=== PATIENT | male | born 1955 | race Caucasian/White ===

== ENCOUNTER 2021-11-19 08:54 | Outpatient (CLI) | payer MEDICARE, MEDICAID, SELFPAY ==
[2021-11-19 10:22] LABS: Albumin* 4.4 g/dL (3.3-5.0); Chloride* 105 mmol/L (96-114); Potassium* 3.9 mmol/L (3.6-5.1); Sodium* 140 mmol/L (135-149)
[2021-11-19 10:24] LABS: Cholesterol* 187 mg/dL (90-199)
[2021-11-19 10:25] LABS: Alanine Aminotransferase* 20 U/L (4-50); Alkaline Phosphatase* 100 U/L (40-150); Aspartate Amino Transferase* 30 U/L (12-35); Bilirubin Total* 0.6 mg/dL (0.1-1.5); Blood Urea Nitrogen* 12 mg/dL (7-30); Carbon Dioxide* 27 mmol/L (20-32); Creatinine* 0.9 mg/dL (0.5-1.5); Estimated Glomerular Filt Rate 95 ml/min; Glucose* 88 mg/dL (60-115); Total Protein* 7.1 g/dL (6.0-8.3); Triglycerides* 168 mg/dL (40-149)
[2021-11-19 10:26] LABS: HDL Cholesterol* 41 mg/dL (>=40); LDL Cholesterol Calculated 112 mg/dL (<100)
[2021-11-19 10:55] LABS: PSA Screen* 1.95 ng/mL (0.10-4.00)
== END 2021-11-19 08:55 | disposition home or self-care (01) ==
PROVIDERS: PCP Internal Medicine; Visit Provider Internal Medicine
DX: Z00.00 Encounter for general adult medical examination without abnormal findings (principal); E78.5 Hyperlipidemia, unspecified; Z23 Encounter for immunization; Z12.5 Encounter for screening for malignant neoplasm of prostate
CPT/HCPCS: 80053; 80061; 84153

== ENCOUNTER 2022-04-18 11:41 | Emergency (ER) | payer MEDICARE, MEDICAID, SELFPAY ==
[2022-04-18 12:04] VITALS: BP 132/87; PULSE 90; TEMP 36.2; O2SAT 96; BMI 26.5
--- NOTE | 2022-04-18 12:20 | ED.GENADULT ---
HPI - General Adult General Chief complaint: Unspecified Complaint, Adult Stated complaint: +Covid Time Seen by Provider: 04/18/22 11:58 History of Present Illness HPI narrative: This 66-year-old male comes in with his as both are positive for COVID. He states that he does not have much for symptoms but is interested in getting Paxlovid. This was prescribed for his . He is interested in getting a prescription for Paxil of it for himself. Related Data Previous Rx's Medication Instructions Recorded gzivkrhw-yfdsmz-NT-thonzonm 3.3 4 drp otic (ear) TID Ear Wax #10 mL 11/19/21 mg-3 mg-10 mg-0.5 mg/mL ear drops,susp (Cortisporin-TC) oijfhrrd-acdati-EJ-thonzonm 3.3 4 drp otic (ear) TID Ear Wax #10 mL 11/22/21 mg-3 mg-10 mg-0.5 mg/mL ear drops,susp (Cortisporin-TC) nwwsubiz-vuctze-NH-thonzonm 3.3 4 drp otic (ear) TID #10 mL 01/01/22 mg-3 mg-10 mg-0.5 mg/mL ear drops,susp (Cortisporin-TC) nirmatrelvir 300 mg (150 mg See Rx Instructions PO .COMPLEX 04/18/22 x2)-ritonavir 100 mg tablet,dose #30 ea pack(EUA) (Paxlovid) Allergies Allergy/AdvReac Type Severity Reaction Status Date / Time No Known Allergies Allergy Unknown Unverified 11/19/21 08:22 Review of Systems Status of ROS: Reports: 10 or more systems reviewed and unremarkable except as noted in History and below Narrative: Constitutional: No fevers, no weight gain or loss. Eyes: No discharge. No vision changes. HENT: No congestion, no sore throat, no ear pain. Cardiovascular: No chest pain, no palpitations. Respiratory: No shortness of breath, no wheezes, no cough. Gastrointestinal: No abdominal pain, no vomiting, no diarrhea. Genitourinary: No dysuria, no hematuria. Musculoskeletal: Normal range of motion. Skin: No rashes, no pruritis. Neurological: No dizziness, weakness, sensory change, speech change. Endo/Heme/Allergies: No bruising or bleeding. No polydipsia. Pysch: no suicidality, no anxiety, no insomnia. All other systems reviewed and are negative. [facility] Medical History (Updated 04/18/22 @ 12:24 by Christopher Butcher MD) Excess ear wax Healthcare maintenance Tubular adenoma Social History Smoking Status: Never smoker Exam Narrative: Exam Narrative: Constitutional: Well-developed, well-nourished, no acute distress. HEENT: Normocephalic, atraumatic. Neck: Normal range of motion. Nontender. Supple. Heart: Regular. No murmurs. Normal rate. Intact distal pulses. Lungs: Clear to auscultation. No chest discomfort. No wheezes, rhonchi, or rales. Abdomen: Normal bowel sounds. Nontender. No rebound tenderness. Genitalia: Deferred. Back: No midline tenderness. Normal range of motion. Extremities: Normal range of motion. No injury. Skin: Intact. No rash. Warm. No erythema or pallor. Neurologic: No altered sensation. No weakness. Alert and oriented. Psychiatric: No suicidality. No anxiety or depression. No insomnia. Nursing notes and vitals signs are reviewed. Const: Vital Signs, click to edit/add: Vital Signs - 24 hr 04/18/22 12:04 Temperature 97.2 F L Pulse Rate [Pulse Oximeter] 90 Blood Pressure [Ri ght Upper Arm] 132/87 Pulse Oximetry 96 Oxygen Delivery Me thod Room Air Course Vital Signs Vital signs: Initial Vital Signs Temperature 97.2 F L 04/18/22 12:04 Temperature Source Temporal Artery Scan 04/18/22 12:04 Pulse Rate 90 04/18/22 12:04 Blood Pressure 132/87 04/18/22 12:04 Blood Pressure Mean 102 04/18/22 12:04 Blood Pressure Position Sitting 04/18/22 12:04 Pulse Oximetry 96 04/18/22 12:04 Oxygen Delivery Method 04/18/22 12:04 Vital Signs Temperature 97.2 F L 04/18/22 12:04 Pulse Rate 90 04/18/22 12:04 Blood Pressure 132/87 04/18/22 12:04 Pulse Oximetry 96 04/18/22 12:04 Oxygen Delivery Method 04/18/22 12:04 Temperature 97.2 F L 04/18/22 12:04 Pulse Rate 90 04/18/22 12:04 Blood Pressure 132/87 04/18/22 12:04 Pulse Oximetry 96 04/18/22 12:04 Oxygen Delivery Method 04/18/22 12:04 Medical Decision Making MDM Narrative Medical decision making narrative: This patient comes in primarily because of his but he himself is interested in getting a prescription for Paxlovid. They both tested positive for COVID prior to arrival here. He has normal vital signs and states that he really is not really having any symptoms. I did provide a prescription for Paxlovid. At the time of discharge the patient appears safe for outpatient management. The treatment plan is reviewed along with written and verbal return precautions. Reasons to return and the importance of close followup were also reviewed. Discharge Plan Discharge Clinical Impression: COVID-19 Patient Disposition: Home, Self-Care Condition: Stable Additional Instructions: Take medication as prescribed. Follow up with MD. Return if worsening symptoms occur, in particular if becoming short of breath and hypoxic. Prescriptions: New Paxlovid (EUA) 300 mg (150 mg x 2)-100 mg tablets,dose pack See Rx Instructions .ROUTE .COMPLEX Qty: 30 0RF Rx Instructions: take TWO 150 mg tablets of nirmatrelvir with ONE 100 mg tablet of ritonavir twice daily for 5 days No Action Cortisporin-TC 3.3-3-10-0.5 mg/mL drops,suspension 4 drp otic (ear) TID Qty: 10 2RF Rx Instructions: Generic ok Cortisporin-TC 3.3-3-10-0.5 mg/mL drops,suspension 4 drp otic (ear) TID Qty: 10 3RF Cortisporin-TC 3.3-3-10-0.5 mg/mL drops,suspension 4 drp otic (ear) TID Qty: 10 0RF Follow Up/Referrals: Charles Holt MD [Primary Care Provider] - Stand Alone [facility]
[2022-04-18 13:03] VITALS: BP 121/84; PULSE 68; RESP 14; O2SAT 96
== END 2022-04-18 13:41 | disposition home or self-care (01) ==
LOC: ED 12:28
PROVIDERS: Emergency Provider Emergency Medicine Emergency Medical Services; PCP Internal Medicine
DX: U07.1 COVID-19 (principal)
CPT/HCPCS: 99283; 99284

== ENCOUNTER 2022-12-08 10:46 | Outpatient (CLI) | payer MEDICARE, MEDICAID, SELFPAY | END 2022-12-08 10:47 | disposition home or self-care (01) | PROVIDERS: PCP Internal Medicine; Visit Provider Internal Medicine | DX: Z00.00 Encounter for general adult medical examination without abnormal findings (principal); R53.83 Other fatigue; Z12.5 Encounter for screening for malignant neoplasm of prostate; Z13.6 Encounter for screening for cardiovascular disorders | CPT/HCPCS: 80053; 80061; 84153 ==

== ENCOUNTER 2023-12-22 08:15 | Outpatient (CLI) | payer MEDICARE, OTHER, SELFPAY | END 2023-12-22 08:16 | disposition home or self-care (01) | LOC: NFLDREF 14:19 | PROVIDERS: PCP Internal Medicine; Referring Provider Internal Medicine; Visit Provider Internal Medicine | DX: Z00.00 Encounter for general adult medical examination without abnormal findings (principal); Z12.5 Encounter for screening for malignant neoplasm of prostate; Z13.6 Encounter for screening for cardiovascular disorders; Z13.9 Encounter for screening, unspecified | CPT/HCPCS: 80053; 80061; G0103 ==

== ENCOUNTER 2024-02-08 14:34 | Outpatient (CLI) | payer MEDICARE, OTHER, SELFPAY ==
--- OUTSIDE RECORDS SUMMARY | 2024-02-08 14:37 | XMS_ITS | Encounter Summary ---
Author Organization [facility] Address [address] [place] [address] Care Team Providers Care Beam Department Supervisor Name Role Phone Unavailable Primary Care Provider Unavailabl e Reason for Referral * Outpatient (Routine) - Closed Specialty Diagnoses / Procedures Referred By Jackie t Referred To Contact Ophthalmology Diagnoses Cataract Charles Holt M.D. [address] [place] [address] Phone: tel: fax: [facility] Referral ID Status Reason Start Date Expiration Date Visits Re quested Visits Authorized [id number] Closed 12/14/2023 06/14/2025 1 1 Encounter Details Date Type Department Care Team (Late st Contact Info) Description 12/14/2023 [facility] [address] [place] [address] Charles Holt M.D. [address] [place] [phone] Cataract (Primary Dx) Social History Tobacco Use Types Packs/Day Years Used Date Smoking Tobacco: Never Assessed Dental Answer Date Recorded Dental: Regular Dentist Unknown 12/03/19 Sex and Gender Information Value Date Recorded Sex Assigned at Not on file Legal Sex Male 3:15 PM CDT Gender Identity Not on file Sexual Orientation Not on file documented as of this encounter Plan of Treatment Scheduled Referrals Name Type Priority Associated Diagnoses Orde r Schedule Optometry Referral Outpatient Referral Routine Cataract Expected: 12/14/2023 (Approximate), Expires: 03/14/2025 documented as of this encounter Visit Diagnoses Diagnosis Cataract- Primary documented in this encounter
--- OUTSIDE RECORDS SUMMARY | 2024-02-08 14:37 | XMS_ITS | Referral Summary ---
Author Organization [facility] Address [address] [place] [address] Care Team Providers Care Economic Analyst Name Role Phone Unavailable Primary Care Provider Unavailabl e Source Comments Patient records contain information from all sites at [facility]. For routine questions regarding patient records, call [phone] during business hours, M-F 8:00 AM - 5:00 PM Central Time. Record requests for emergency care only can be directed to [phone] at any time.[facility] Encounters Date Type Department Care Team Description 12/22/2023 Episode Changes Department of Ophthalmology in [place], [place] [address] [place] [address] Cris Barkley 12/22/2023 3:15 PM CDT Comprehensive Visit Department of Ophthalmology in [place], [place] [address] [place] [phone] Ramos Boston M.D. Age Related Nuclear Cataract Bilateral (Primary Dx); Cataract 12/15/2023 Orders Only Department of Ophthalmology in [place], [place] [address] [place] [address] Shahid Sebastian, C.OLala Age Related Nuclear Cataract Bilateral (Primary Dx) 12/15/2023 Clinical Communication Department of Ophthalmology in [place], [place] [address] [place] [address] Ramos Boston M.D. 12/14/2023 [facility] [address] [place] [address] Charles Holt M.D. Cataract (Primary Dx) from Last 3 Months Social History Tobacco Use Types Packs/Day Years Used Date Smoking Tobacco: Never Assessed Dental Answer Date Recorded Dental: Regular Dentist Unknown 12/03/19 24 Sex and Gender Information Value Date Recorded Sex Assigned at Not on file Legal Sex Male 3:15 PM CDT Gender Identity Not on file Sexual Orientation Not on file Plan of Treatment Not on file Insurance MEDICARE [facility]
--- OUTSIDE RECORDS SUMMARY | 2024-02-08 14:37 | XMS_ITS | Encounter Summary ---
Author Organization [facility] Address [address] [place] [address] Care Team Providers Care Slubber Hand Name Role Phone Unavailable Primary Care Provider Unavailabl e Reason for Visit * Reason Comments Cataract * Outpatient (Routine) - Closed Specialty Diagnoses / Procedures Referred By Jackie lynne Referred To Contact Ophthalmology Diagnoses Cataract Charles Holt M.D. [address] [place] [address] Phone: tel: fax: [facility] Referral ID Status Reason Start Date Expiration Date Visits Re quested Visits Authorized [id number] Closed 12/14/2023 06/14/2025 1 1 Encounter Details Date Type Department Care Team (Latest Contact Info) Description 12/22/2023 3:15 PM CDT Comprehensive Visit Department of Ophthalmology in [place], [place] [address] [place] [address] Ramos Boston M.D. 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 RBA bilateral cataract surgery discussed. Note would target plano with second eye committed ot surgery one month later. Would lose ability to see near without glasses rx. Will call if/when functionally significant and wishes to pursue cataract surgery. #2 high myopia Does not wear contacts. Note increased risk retinal tear, detachment. Eyeglass rx updated. #3 floaters No retinal detachment, hole, or tear. Follow-up as needed for new symptoms. 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
--- OUTSIDE RECORDS SUMMARY | 2024-02-08 14:37 | XMS_ITS | Encounter Summary ---
Author Organization [facility] Address [address] [address] Phone Care Team Providers Care Boot And Saddle Repair Person Name Role Phone Gaston Aguirre MD Primary Care Provider [phone] Reason for Visit * Reason Comments Ear Problem Encounter Details Date Type Department Care Team (Late st Contact Info) Description 01/07/2024 2:15 PM CDT Office Visit [facility] OTOLARYNGOLOGY [address] [place] [phone] Ramos Son MD,PhD [address] [place] [address] Chronic otitis externa of both ears, unspecified type (Primary Dx); Sensorineural hearing loss (SNHL) of both ears Social History Tobacco Use Types Packs/Day Years Used Date Smoking Tobacco: Never Smokeless Tobacco: Never Sex and Gender Information Value Date Recorded Sex Assigned at Not on file Legal Sex Male 3:45 PM CDT Gender Identity Not on file Sexual Orientation Not on file documented as of this encounter Progress Notes * Ramos Son MD,PhD - 01/07/2024 2:15 PM CDT [facility]- Established Patient HPI: Kin Ac is a(n) 68 year old who presents for an ear cleaning. He was last seen 11/06/21 for chronic otitis externa of both ears. Location: bilateral ears Current symptoms: plugged ears, itchiness Current treatment: None Previous symptoms: plugged ears, slight hearing loss, drainage in the right ear Past treatment: PCP tried ear lavage of both ears 3-4 weeks ago, Last ear cleaning 11/06/21 Previous tests: None Physical Exam: General: Pleasant male sitting in clinic in no acute distress Head and Face: Normal Facial strength: Normal Ears: see procedure note Neck: Normal Lungs: Normal respiratory effort, rate and rhythm, no increased work of breathing Neuro/Psych: Normal- orientation to person, place and time Mood and affect: Normal Gait and station: Normal Procedure: Binocular Microscopy Indication: plugged ears Description: Right: Under the binocular microscope, the right ear was visualized and ear was cleansed of wet cerumen. No drainage. No granulation tissue. No lesions. Ear canal irritated and inflamed. TM is intact, middle ear clear. Left Under the binocular microscope, the left ear was visualized and ear was cleansed of wet cerumen. Nodrainage. No granulation tissue. No lesions. Ear canal irritated and inflamed. TM is intact, middleear clear. Instruments used: suction. Medications used: none. Impression/Plan: (H60.63) Chronic otitis externa of both ears, unspecified type (primary encounter diagnosis); Sensorineural hearing loss Under the binocular microscope, wet cerumen cleansed from both ears (L>R) to reveal a inflamed and irritated ear canal (see procedure note). We discussed routine ear cleanings and/or Triamcinolone0.1% in his ears. He opts for routine cleanings every 6 months. I personally reviewed and interpreted the audiogram, which shows moderately severe SNHL of both ears. He is a candidate for hearing aids and will schedule a hearing aid evaluation. Follow up in 6 months, sooner as needed. Scribed for Ramos Son MD,PhD by Aline Mcpherson RN, scribe, on 01/07/2024 at 2:06 PM. I, Ramos Son MD,PhD, have personally reviewed and agreed with the information entered bythe scribe. documented in this encounter Plan of Treatment Not on file documented as of this encounter Procedures Procedure Name Priority Date/Time Associated Diagnosis Comments EAR MICROSCOPY EXAMINATION Routine 01/07/2024 3:32 PM CDT Chronic otitis externa of both ears, unspecified type documented in this encounter Visit Diagnoses Diagnosis Chronic otitis externa of both ears, unspecified type- Primary Sensorineural hearing loss (SNHL) of both ears documented in this encounter Orders Procedures Count Last Ordered Date First Orde red Date EAR MICROSCOPY EXAMINATION 1 01/07/2024 documented in this encounter Care Teams Boot And Saddle Repair Person Relationship Specialty Start Date End Date Gaston Aguirre MD [address] [address] PCP - General Family Medicine 01/07/24 documented as of this encounter
--- OUTSIDE RECORDS SUMMARY | 2024-02-08 14:37 | XMS_ITS | Encounter Summary ---
Author Organization [facility] Address [address] [address] Phone Care Team Providers Care Automobile Or Truck Rental Dispatcher Name Role Phone Gaston Aguirre MD Primary Care Provider [phone] Encounter Details Date Type Department Care Team (Late st Contact Info) Description 01/07/2024 2:30 PM CDT Office Visit [facility] AUDIOLOGY [address] [place] [address] [address] [place] [phone] NoraMireya MS [address] [place] [address] Chronic otitis externa of both ears, unspecified type (Primary Dx) Social History Tobacco Use Types Packs/Day Years Used Date Smoking Tobacco: Never Smokeless Tobacco: Never Sex and Gender Information Value Date Recorded Sex Assigned at Not on file Legal Sex Male 3:45 PM CDT Gender Identity Not on file Sexual Orientation Not on file documented as of this encounter Progress Notes * Nora, Mireya Bahena MS - 01/07/2024 2:30 PM CDT [facility] Visit - Hearing Test Malorie Ac is a 68 year old patient who presents with chronic otitis externa of both ears. . OTOSCOPY: Right: Clear Left: Clear TEST RESULTS: Pure tone hearing testing: Mild to moderately severe, mid to high frequency, sensorineural hearing loss in each ear. Speech audiometry: Right: 80% Left: 84% NOTE: Pt is not a [place] speaker. Speech Media Associate Thresholds (SRT) were consistent with Pure Tone Averages (FUNERAL DRIVER). Tympanometry: Right: Type A tympanogram -- consistent with normal middle ear function Left: Type A tympanogram -- consistent with normal middle ear function FOLLOW UP: Returned to exam room for ENT consult. Hearing aid evaluation is recommended. documented in this encounter Plan of Treatment Not on file documented as of this encounter Procedures Procedure Name Priority Date/Time Associated Diagnosis Comments TYMPANOMETRY Routine 01/07/2024 Chronic otitis externa of both ears, unspecified type COMPREHENSIVE HEARING TEST Routine 01/07/2024 Chronic otitis externa of both ears, unspecified type documented in this encounter Results * TYMPANOMETRY (01/07/2024) us Mireya Melendez MS EC PROCEDURES Final Result * COMPREHENSIVE HEARING TEST (01/07/2024) us Mireya Melendez MS EC PROCEDURES Final Result documented in this encounter Visit Diagnoses Diagnosis Chronic otitis externa of both ears, unspecified type- Primary documented in this encounter Care Teams Automobile Or Truck Rental Dispatcher Relationship Specialty Start Date End Date Gaston Aguirre MD [address] [address] PCP - General Family Medicine 01/07/24 documented as of this encounter
--- OUTSIDE RECORDS SUMMARY | 2024-02-08 14:37 | XMS_ITS | Encounter Summary ---
Author Organization [facility] Address [address] [place] [address] Care Team Providers Care Research Development Manager Name Role Phone Unavailable Primary Care Provider Unavailabl e Encounter Details Date Type Department Care Team (Late st Contact Info) Description 12/22/2023 Episode Changes Department of Ophthalmology in [place], [place] [address] [place] [address] Cris Barkley Social History Tobacco Use Types Packs/Day Years Used Date Smoking Tobacco: Never Assessed Dental Answer Date Recorded Dental: Regular Dentist Unknown 12/03/19 Sex and Gender Information Value Date Recorded Sex Assigned at Not on file Legal Sex Male 3:15 PM CDT Gender Identity Not on file Sexual Orientation Not on file documented as of this encounter Plan of Treatment Not on file documented as of this encounter Visit Diagnoses Not on filedocumented in this encounter
--- OUTSIDE RECORDS SUMMARY | 2024-02-08 14:37 | XMS_ITS ---
Author Organization [facility] Address [address] [place] [address] Care Team Providers Care Director Of Annual Giving Name Role Phone Unavailable Unavailable Unavailable Surgery Details Not on file Complications Check Surgery Details section. Procedure Estimated Blood Loss Check Surgery Details section. Procedure Findings Check Surgery Details section. Procedure Specimens Taken Check Surgery Details section.
--- OUTSIDE RECORDS SUMMARY | 2024-02-08 14:37 | XMS_ITS | Encounter Summary ---
Author Organization [facility] Address [address] [place] [address] Care Team Providers Care Pecan Huller Name Role Phone Unavailable Primary Care Provider Unavailabl e Encounter Details Date Type Department Care Team (Latest Contact Info) Description 12/15/2023 Clinical Communication Department of Ophthalmology in [place], [place] [address] [place] [address] Ramos Boston M.D. [address] [place] [address] Social History Tobacco Use Types Packs/Day Years [...]
--- OUTSIDE RECORDS SUMMARY | 2024-02-08 14:37 | XMS_ITS | Clinical Summary ---
Author Organization [facility] Address [address] [place] [address] Care Team Providers Care Merchandise Manager Name Role Phone Unavailable Primary Care Provider Unavailabl e Source Comments Patient records contain information from all sites at [facility]. For routine questions regarding patient records, call [phone] during business hours, M-F 8:00 AM - 5:00 PM Central Time. Record requests for emergency care only can be directed to [phone] at any time.[facility] Encounters Date Type Department Care Team Description 12/22/2023 3:15 PM CDT Comprehensive Visit Department of Ophthalmology in [place], [place] [address] [place] [address] Ramos Boston M.D. 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 12/14/2023 [facility] [address] [place] [address] Charles Holt M.D. Cataract (Primary Dx) from [...] Orientation Not on file Plan of Treatment Health Maintenance Due Date Last Done Comments CT Colonography 1955 Cologuard 1955 Colonoscopy 1955 Colorectal Cancer Screening 1956 FIT 1956 Fasting Glucose for Diabetes Screening 1955 Hepatitis C Screening 1955 Pneumococcal vaccine (65+ years) (2 of 2 - PPSV23 or PCV20) 11/19/2022 11/19/2021 Depression Screening (Annual PHQ-2) 03/22/2023 Fall Risk Screen (Annual) 03/22/2023 COVID-19 Vaccine ( season) 2023 12/30/2021, 07/15/2021, 12/21/2020, Additional history exists Influenza Vaccine (#1) 2023 3, 12/30/2021, 12/21/2020, Additional history exists DTaP,Tdap,and Td Vaccines (2 - Td or Tdap) 09/08/2027 09/07/2017 Zoster Vaccines Completed 01/26/2018, 10/25/2017 IPV Vaccines Aged Out No longer eligi ble based on patient's age to complete this topic Insurance MEDICARE [employer]
--- OUTSIDE RECORDS SUMMARY | 2024-02-08 14:37 | XMS_ITS | Clinical Summary ---
Author Organization [facility] Address [place], [place] [address] Care Team Providers Care Real Estate Leasing Agent Name Role Phone Unknown, Doctor Primary Care Provider Unavailabl e Allergies No known active allergies Medications Medication Sig Dispensed Refills Start Date End Date Status predniSONE (DELTASONE) 20 mg tabletIndications: Lumbar radiculopathy Take 1 Tablet (20 mg) by mouth two times daily with meals for 4 days, THEN 1 Tablet (20 mg) once daily with a meal for 4 days. 12 Tablet 02/05/2024 4 Active HYDROcodone-acetam inophen (5-325 mg/tablet)Indicati ons:Lumbar radiculopathy Take 1 Tablet by mouth every 4 hours if needed for Pain. Max acetaminophen dose: 4000 mg in 24 hrs. 24 Tablet 02/07/2024 Active HYDROcodone-acetam inophen (5-325 mg/tablet)Indicati ons:Lumbar radiculopathy Take 1 Tablet by mouth every 4 hours if needed for Pain. Max acetaminophen dose: 4000 mg in 24 hrs. 12 Tablet 02/05/2024 4 Discontinu ed(Reorder (E-cancel not sent)) Active Problems No known active problems Encounters Date Type Department Care Team Description 02/08/2024 11:15 AM PRESS OPERATOR HELPER Ancillary Procedure [facility] [address] [facility] [address] [place] [address] Arrived 02/08/2024 Telephone [facility] [address] [place] [address] Gabino Chen MD Results 02/07/2024 4:00 PM PRESS OPERATOR HELPER Ancillary Procedure [facility] [address] [place] [address] Arrived 02/07/2024 3:45 PM PRESS OPERATOR HELPER Ancillary Procedure [facility] [address] [place] [address] Arrived 02/07/2024 2:40 PM PRESS OPERATOR HELPER Office Visit [facility] [address] [place] [address] Gabino Chen MD Musculoskeletal Problem (Consult back pain/Consult left knee pain) 02/07/2024 Travel 02/05/2024 Orders Only [facility] [address] [place] [address] Gabino Chen MD Back Pain (/) from Last 3 Months Immunizations Name Administration Dates Next Due Influenza, IIV3 (Age >=3 years) 04/11/2007 Social History Tobacco Use Types Packs/Day Years Used Date Smoking Tobacco: Never Smokeless Tobacco: Never Tobacco Cessation:Counseling Given: Yes Sex and Gender Information Value Date Recorded Sex Assigned at Not on file Gender Identity Not on file Sexual Orientation Not on file Obstetrics History Last Filed Vital Signs Vital Sign Reading Time Taken Comments Blood Pressure 152/84 02/07/2024 2:56 PM PRESS OPERATOR HELPER Pulse 63 02/07/2024 2:56 PM PRESS OPERATOR HELPER Temperature 36.6 C (97.9 F) 02/07/2024 2:56 PM PRESS OPERATOR HELPER Respiratory Rate - - Oxygen Saturation 95% 02/07/2024 2:56 PM PRESS OPERATOR HELPER Inhaled Oxygen Concentration - - Weight 84.4 kg (186 lb) 02/07/2024 2:56 PM PRESS OPERATOR HELPER s hoes on Height - - Body Mass Index - - Plan of Treatment Upcoming Encounters Date Type Department Care Team (Late st Contact Info) Description 02/08/2024 3:20 PM PRESS OPERATOR HELPER Office Visit [facility] [address] [place] [address] Gabino Chen MD [address] [place] [address] Arrived Health Maintenance Due Date Last Done Comments Tdap 06/16/1967 Depression screening for age 12+ 1968 BMI (ht and wt on same day) for age 18+ 1974 Hepatitis C screening for ag e 18-79 1974 Tetanus booster 1976 Zoster (shingles) series for age 50+ (1 of 2) 2006 Medicare Wellness for age 65+ 2021 Pneumococcal series for age 65+ (1 of 1 - PCV) 2021 Fecal testing non-DNA (FIT,FOBT,iFOBT) for age 45-75 10/10/2021 10/10/2020 Influenza for age 65+ 11/21/2023 04/11/2007 Lipids for age 45-75 09/18/2025 09/18/2020 COVID-19 vaccine series Completed 01/05/20, 12/21/2020, 06/14/2020, Additional history exists Procedures Procedure Name Priority Date/Time Associated Diagnosis Comments AMB EPIDURAL STEROID INJECTION MARIA ISABEL 02/08/2024 12:32 PM PRESS OPERATOR HELPER Lumbar radiculopathy Lumbar disc herniation Left leg weakness MR SPINE LUMBAR WO MARIA ISABEL 02/08/2024 11 :51 AM PRESS OPERATOR HELPER Lumbar radiculopathy Left leg weakness Acute pain of left knee XR SPINE LUMBAR 2 VIEWS Routine 02/07/2024 4:05 PM PRESS OPERATOR HELPER Lumbar radiculopathy XR KNEE WB 2 VIEWS BILATERAL AND 1 VIEW LEFT Routine 02/07/2024 4:04 PM PRESS OPERATOR HELPER Left leg weakness Acute pain of left knee OCCULT BLOOD IFOBT STOOL Routine 10/10/2020 2:00 PM CDT LIPID PANEL Routine 09/18/2020 9:08 AM CDT from Last 3 Months or Most Recently Relevant to Health Maintenance Results * MR SPINE LUMBAR WO (02/08/2024 11:51 AM PRESS OPERATOR HELPER) Anatomical Region Laterality Modality Spine, LUMBAR SPINE Magnetic Res onance 02/08/2024 12:0 5 PM PRESS OPERATOR HELPER Addenda Addendum by David Hendrix MD, PhD on 02/08/2024 12:23 PM PRESS OPERATOR HELPER INDICATION: Lumbar radiculopathy. Left leg weakness. COMPARISON: None. TECHNIQUE: Sagittal T1, T2, and STIR sequences. Axial T1 and T2 weighted sequences. FINDINGS: Normal vertebral body alignment. No fractures. No vertebral body loss of height. No ligamentous injury. No suspicious osseous lesions. Normal conus terminates at L2. T11-12: Disc degeneration and posterior disc bulge. Mild narrowing of spinal canal. No neural foraminal narrowing. T12-L1: No spinal canal or neural foraminal narrowing. L1-2: Disc degeneration. No narrowing of spinal canal. No neural foraminal narrowing. L2-3: Disc degeneration and posterior disc bulge. No narrowing of spinal canal. No neural foraminal narrowing. L3-4: Disc degeneration and diffuse disc bulge eccentric to the right. Mild narrowing of spinal canal. Moderate severe right and mild left neural foraminal narrowing. Mild facet arthropathy. L4-5: Disc degeneration. Diffuse disc bulge. Moderate narrowing of the spinal canal. Bilateral subarticular recess narrowing potential impingement of the traversing L5 nerve roots. Moderate narrowing of the bilateral foramina. Mild facet arthropathy. L5-S1: Disc degeneration diffuse disc bulge eccentric to the left. No narrowing of spinal canal. No impingement of the traversing S1 nerve roots. Mild right and moderate left neural foraminal narrowing. Mild facet arthropathy. Degenerative changes of the SI joints. Normal paraspinal soft tissues. IMPRESSION: 1. Normal alignment. No fractures 2. Lumbar spondylosis 3. At T11-12, mild narrowing of the spinal canal 4. At L3-4, mild narrowing of the spinal canal. Moderate to severe right and mild left neural foraminal narrowing. 5. At L4-5, moderate narrowing of the spinal canal. Potential impingement of the traversing L5 nerve roots. Moderate narrowing of the bilateral neural foramina 6. At L5-S1, moderate narrowing of the left neural foramen Dictated by David Hendrix MD @ 02/08/2024 12:05:34 PM ----- ADDENDUM ----- Addendum : Additional findings: At L4-5, disc degeneration and posterior disc bulge. There is an additional superimposed left subarticular disc extrusion measuring approximately 7 millimeters in diameter with 17 millimeters of cephalad migration (best appreciated on series 10 image 28; series 5, image 11). This results in impingement of the traversing portion of the left L4 nerve root. Otherwise, as noted in debridement dictation, there is moderate narrowing of the spinal canal. Bilateral subarticular recess narrowing with potential impingement of the traversing L5 nerve roots. Moderate narrowing of the bilateral neural foramina. Findings discussed with Dr. Chen at 12:21 p.m. Dictated by David Hendrix MD @ Feb 08 2024 12:21PM (Electronically Signed) Impressions 02/08/2024 12:05 PM PRESS OPERATOR HELPER 1. Normal alignment. No fractures 2. Lumbar spondylosis 3. At T11-12, mild narrowing of the spinal canal 4. At L3-4, mild narrowing of the spinal canal. Moderate to severe right and mild left neural foraminal narrowing. 5. At L4-5, moderate narrowing of the spinal canal. Potential impingement of the traversing L5 nerve roots. Moderate narrowing of the bilateral neural foramina 6. At L5-S1, moderate narrowing of the left neural foramen Dictated by David Hendrix MD @ 02/08/2024 12:05:34 PM (Electronically Signed) Narrative 02/08/2024 12:05 PM PRESS OPERATOR HELPER For Patients: As a result of the Cures Act, medical imaging exams and procedure reports are released immediately into your electronic medical record. You may view this report before your referring provider. If you have questions, please contact your health care provider. INDICATION: Lumbar radiculopathy. Left leg weakness. COMPARISON: None. TECHNIQUE: Sagittal T1, T2, and STIR sequences. Axial T1 and T2 weighted sequences. FINDINGS: Normal vertebral body alignment. No fractures. No vertebral body loss of height. No ligamentous injury. No suspicious osseous lesions. Normal conus terminates at L2. T11-12: Disc degeneration and posterior disc bulge. Mild narrowing of spinal canal. No neural foraminal narrowing. T12-L1: No spinal canal or neural foraminal narrowing. L1-2: Disc degeneration. No narrowing of spinal canal. No neural foraminal narrowing. L2-3: Disc degeneration and posterior disc bulge. No narrowing of spinal canal. No neural foraminal narrowing. L3-4: Disc degeneration and diffuse disc bulge eccentric to the right. Mild narrowing of spinal canal. Moderate severe right and mild left neural foraminal narrowing. Mild facet arthropathy. L4-5: Disc degeneration. Diffuse disc bulge. Moderate narrowing of the spinal canal. Bilateral subarticular recess narrowing potential impingement of the traversing L5 nerve roots. Moderate narrowing of the bilateral foramina. Mild facet arthropathy. L5-S1: Disc degeneration diffuse disc bulge eccentric to the left. No narrowing of spinal canal. No impingement of the traversing S1 nerve roots. Mild right and moderate left neural foraminal narrowing. Mild facet arthropathy. Degenerative changes of the SI joints. Normal paraspinal soft tissues. Procedure Note David Hendrix MD, PhD - 02/08/2024 For Patients: As a result of the Cures Act, medical imagingexams and procedure reports are released immediately into your electronicmedical record. You may view this report before your referring provider.If you have questions, please contact your health care provider. INDICATION: Lumbar radiculopathy. Left leg weakness. COMPARISON: None. TECHNIQUE: Sagittal T1, T2, and STIR sequences. Axial T1 and T2 weighted sequences. FINDINGS: Normal vertebral body alignment. No fractures. No vertebral body loss ofheight. No ligamentous injury. No suspicious osseous lesions. Normal conusterminates at L2. T11-12: Disc degeneration and posterior disc bulge. Mild narrowing ofspinal canal. No neural foraminal narrowing. T12-L1: No spinal canal or neural foraminal narrowing. L1-2: Disc degeneration. No narrowing of spinal canal. No neural foraminalnarrowing. L2-3: Disc degeneration and posterior disc bulge. No narrowing of spinalcanal. No neural foraminal narrowing. L3-4: Disc degeneration and diffuse disc bulge eccentric to the right.Mild narrowing of spinal canal. Moderate severe right and mild left neuralforaminal narrowing. Mild facet arthropathy. L4-5: Disc degeneration. Diffuse disc bulge. Moderate narrowing of thespinal canal. Bilateral subarticular recess narrowing potentialimpingement of the traversing L5 nerve roots. Moderate narrowing of thebilateral foramina. Mild facet arthropathy. L5-S1: Disc degeneration diffuse disc bulge eccentric to the left. Nonarrowing of spinal canal. No impingement of the traversing S1 nerveroots. Mild right and moderate left neural foraminal narrowing. Mild facetarthropathy. Degenerative changes of the SI joints. Normal paraspinal soft tissues. IMPRESSION: 1. Normal alignment. No fractures 2. Lumbar spondylosis 3. At T11-12, mild narrowing of the spinal canal 4. At L3-4, mild narrowing of the spinal canal. Moderate to severe rightand mild left neural foraminal narrowing. 5. At L4-5, moderate narrowing of the spinal canal. Potential impingementof the traversing L5 nerve roots. Moderate narrowing of the bilateralneural foramina 6. At L5-S1, moderate narrowing of the left neural foramen Dictated by David Hendrix MD @ 02/08/2024 12:05:34 PM (Electronically Signed) Gabino Chen MD MR * XR SPINE LUMBAR 2 VIEWS (02/07/2024 4:05 PM PRESS OPERATOR HELPER) Anatomical Region Laterality Modality LUMBAR SPINE Computed Radiogr aphy 02/08/2024 10:2 9 AM PRESS OPERATOR HELPER Narrative 02/08/2024 10:29 AM PRESS OPERATOR HELPER For Patients: As a result of the Cures Act, medical imaging exams and procedure reports are released immediately into your electronic medical record. You may view this report before your referring provider. If you have questions, please contact your health care provider. Indication: Lumbar radiculopathy Technique: Two views of the lumbar spine Comparison: None Findings: Five non rib-bearing vertebral bodies are present in anatomic alignment and normal mineralization. There is no acute fracture, dislocation or suspicious bony lesion. Vertebral body heights are preserved. Moderate multilevel anterior endplate osteophytes and intervertebral disc space narrowing is identified and there are sclerotic changes within the lower lumbar facets. There are mild atherosclerotic calcifications within the abdominal aorta. Impression: Moderate multilevel degenerative changes of the lumbar spine. If there is concern for radiculopathy, recommend lumbar spine MR. Dictated by Douglas Mejia MD @ 02/08/2024 10:29:56 AM (Electronically Signed) Procedure Note Douglas Mejia MD - 02/08/2024 For Patients: As a result of the Cures Act, medical imagingexams and procedure reports are released immediately into your electronicmedical record. You may view this report before your referring provider.If you have questions, please contact your health care provider. Indication: Lumbar radiculopathy Technique: Two views of the lumbar spine Comparison: None Findings: Five non rib-bearing vertebral bodies are present in anatomic alignmentand normal mineralization. There is no acute fracture, dislocation orsuspicious bony lesion. Vertebral body heights are preserved. Moderatemultilevel anterior endplate osteophytes and intervertebral disc spacenarrowing is identified and there are sclerotic changes within the lowerlumbar facets. There are mild atherosclerotic calcifications within theabdominal aorta. Impression: Moderate multilevel degenerative changes of the lumbar spine. If there isconcern for radiculopathy, recommend lumbar spine MR. Dictated by Douglas Mejia MD @ 02/08/2024 10:29:56 AM (Electronically Signed) Gabino Chen MD GENERAL IMAGING * XR KNEE WB 2 VIEWS BILATERAL AND 1 VIEW LEFT (02/07/2024 4:04 PM PRESS OPERATOR HELPER) Anatomical Region Laterality Modality KNEES, KNEE L Computed Radiogr aphy 02/08/2024 10:2 6 AM PRESS OPERATOR HELPER Narrative 02/08/2024 10:26 AM PRESS OPERATOR HELPER For Patients: As a result of the Cures Act, medical imaging exams and procedure reports are released immediately into your electronic medical record. You may view this report before your referring provider. If you have questions, please contact your health care provider. Indication: Left leg weakness and left knee pain Technique: Frontal view of bilateral knees, sunrise view of bilateral knees, and lateral view of the left knee Comparison: None Findings: Mild lateral bilateral patellar tilt is identified. There is no acute fracture, dislocation or suspicious bony lesion. Mild left knee medial compartment joint space narrowing is noted and there is mild spurring of the undersurface of the left patella. Trace atherosclerotic calcifications are noted within the visualized left leg seen on the lateral view. Impression: Bilateral patellar tilt, correlate for patellar tracking abnormalities. Mild bicompartmental degenerative changes of the left knee. Dictated by Douglas Mejia MD @ 02/08/2024 10:26:40 AM (Electronically Signed) Procedure Note Douglas Mjeia MD - 02/08/2024 For Patients: As a result of the Cures Act, medical imagingexams and procedure reports are released immediately into your electronicmedical record. You may view this report before your referring provider.If you have questions, please contact your health care provider. Indication: Left leg weakness and left knee pain Technique: Frontal view of bilateral knees, sunrise view of bilateral knees, andlateral view of the left knee Comparison: None Findings: Mild lateral bilateral patellar tilt is identified. There is no acutefracture, dislocation or suspicious bony lesion. Mild left knee medialcompartment joint space narrowing is noted and there is mild spurring ofthe undersurface of the left patella. Trace atherosclerotic calcificationsare noted within the visualized left leg seen on the lateral view. Impression: Bilateral patellar tilt, correlate for patellar tracking abnormalities.Mild bicompartmental degenerative changes of the left knee. Dictated by Douglas Mejia MD @ 02/08/2024 10:26:40 AM (Electronically Signed) Gabino Chen MD GENERAL IMAGING * OCCULT BLOOD IFOBT STOOL (10/10/2020 2:00 PM CDT) STOOL BLOOD ,IFOBT Negative Negative 10/15/2020 7:46 PM CDT [facility] Stool STOOL SPECIMEN / Unknown Client Collect / Unknown 10/10/2020 2:00 PM CDT 10/15/2020 7:26 PM CDT Thuan [place] [address] * LIPID PANEL (09/18/2020 9:08 AM CDT) CHOLESTEROL,TOTAL 183 100 - 199 mg/dL 09/19/2020 10:55 AM CDT [facility] TRIGLYCERIDES 105 <150 mg/dL 09/19/2020 10:55 AM CDT [facility] HDL CHOLESTEROL 49 >40 mg/dL 10:55 AM CDT [facility] NON-HDL CHOLESTEROL 134 <145 mg/dl 09/19/2020 10:55 AM CDT [facility] CHOL/HDL RATIO 3.73 <4.50 09/19/2020 10:55 AM CDT [facility] LDL CHOLESTEROL 113 <=130 mg/dL 09/19/2020 10:55 AM CDT [facility] VLDL CHOLESTEROL 21 mg/dL 09/20/19 10:55 AM CDT [facility] PROVIDER ORDERED STATUS RANDOM 09/19/2020 10:55 AM CDT [facility] Blood BLOOD SPECIMEN / Unknown 09/18/2020 9:08 AM CDT 09/19/2020 9:43 AM CDT Sergio Craft MD CHEMISTRY Performing Organization Address City/State/[facility] Co de Phone Number [facility] [address] [place] [address] from Last 3 Months or Most Recently Relevant to Health Maintenance Care Teams Real Estate Leasing Agent Relationship Specialty Start Date End Date Unknown, Doctor . PCP - General 11/26/06
--- OUTSIDE RECORDS SUMMARY | 2024-02-08 14:37 | XMS_ITS | Encounter Summary ---
Author Organization [facility] Address [address] [place] [address] Care Team Providers Care Black Belt Name Role Phone Unavailable Primary Care Provider Unavailabl e Encounter Details Date Type Department Care Team (Late st Contact Info) Description 12/15/2023 Orders Only Department of Ophthalmology in [place], [place] [address] [place] [address] Shahid Sebastian, C.O.A. Age Related Nuclear Cataract Bilateral (Primary Dx) Social History Tobacco Use Types Packs/Day Years Used Date Smoking Tobacco: Never Assessed Dental Answer Date Recorded Dental: Regular Dentist Unknown 12/03/19 Sex and Gender Information Value Date Recorded Sex Assigned at Not on file Legal Sex Male 3:15 PM CDT Gender Identity Not on file Sexual Orientation Not on file documented as of this encounter Plan of Treatment Scheduled Orders Name Type Priority Associated Diagnoses Orde r Schedule Ocular Coherence Biometry (OCB) - OU - Both Eyes Ophthalmology Routine Age Related Nuclear Cataract Bilateral 1 Occurrences starting 12/15/2023 until 03/15/2025 documented as of this encounter Visit Diagnoses Diagnosis Age Related Nuclear Cataract Bilateral- Primary documented in this encounter
--- OUTSIDE RECORDS SUMMARY | 2024-02-08 14:37 | XMS_ITS | Encounter Summary ---
Author Organization [facility] Address [address] [address] Phone Care Team Providers Care Instrument Lens Generator Name Role Phone Gaston Aguirre MD Primary Care Provider [phone] Encounter Details Date Type Department Care Team (Latest Contact Info) Description 01/07/2024 Travel Social History Tobacco Use Types Packs/Day Years [...] Diagnoses Not on filedocumented in this encounter Care Teams Instrument Lens Generator Relationship Specialty Start Date End Date Gaston Aguirre MD [address] [address] PCP - General Family Medicine 01/07/24 documented as of this encounter
== END 2024-02-08 14:35 | disposition home or self-care (01) ==
LOC: RAD 14:35 → INJ CL 14:37
PROVIDERS: PCP Internal Medicine; Visit Provider Family Medicine
DX: M54.16 Radiculopathy, lumbar region (principal); M51.26 Other intervertebral disc displacement, lumbar region
CPT/HCPCS: 64483; J1100; Q9966

== ENCOUNTER 2024-03-08 14:14 | Outpatient (CLI) | payer MEDICARE, OTHER, SELFPAY ==
--- OUTSIDE RECORDS SUMMARY | 2024-03-07 12:06 | XMS_ITS | Data Portability ---
Author Organization NIKUNJ [facility] OFF[facility] Address [address] [place] [address] [place] [address] Assessment No assessment recorded. Plan of Treatment Reminders Order Date Submit Date Provider Last Modified By Organization Details Last Modified Time Details Appointments None record ed. Lab None record ed. Referral None record ed. Procedures None record ed. Surgeries None record ed. Imaging None record ed. Medication Orders None record ed. Patient TargetsNo targets recorded. Patient Instructions Encounter Date Encounter Id Patient Instructions Last Modified By Organization Details Last Modified Time 10/14/2020 [id number] [facility] Not available 10/14/2020 17:12:36 Reason for Referral None Reported. Results Created Date Observation Date Name Description Value Unit Range Abnormal Flag Note LastModifiedBy Organization Detail LastModifiedTime 09/19/19 21 09/18/2020 lipid panel , serum total cholesterol 183 Not Available [facility] [address] [place] [address], [phone], 09/19/2020 12:18:14 09/19/19 21 09/18/2020 lipid panel , serum triglyceride s 105 Not Available [facility] [address] [place] [address], [phone], 09/19/2020 12:18:14 09/19/19 21 09/18/2020 lipid panel , serum HDL 49 Not Available [address], [address], 09/19/2020 12:18:14 09/19/19 21 09/18/2020 lipid panel , serum LDL 113 Not Available [address], [address], 09/19/2020 12:18:14 09/19/19 21 09/18/2020 lipid panel , serum creatinine 1.06 Not Available [facility] Office [address] [place] [address], [address], 09/19/2020 12:18:14 09/19/19 21 09/18/2020 BMP, blood total cholesterol 183 Not Available [facility] [address] [place] [address], [phone], 09/19/2020 15:30:38 09/19/19 21 09/18/2020 BMP, blood triglyceride s 105 Not Available [facility] [address] [place] [address], [address], 09/19/2020 15:30:38 09/19/19 21 09/18/2020 BMP, blood HDL 49 Not Available [address], [address], 09/19/2020 15:30:38 09/19/19 21 09/18/2020 BMP, blood LDL 113 Not Available [address], [address], 09/19/2020 15:30:38 09/19/19 21 09/18/2020 BMP, blood creatinine 1.06 Not Available [address], [address], 09/19/2020 15:30:38 09/19/19 21 09/18/2020 HbA1c (hemo globi n A1c), blood hemoglobin A1C 5.5 Not Available [facility] [address] [place] [address], [address], 09/19/2020 19:08:17 Result Notes None recorded. Medical Equipment None Reported. Vitals Date Recorded Body weight Systolic blood pressure Diastolic blood pressure Provider Name and Address Organization Details Last Updated DateTime 10/14/2020 16000.63 g 132 mm[Hg] 89 mm[Hg] Thuan Vallejo MD [facility] [place], [address] 10/14/2020 17:08:54 Social History None recorded. Functional Status None recorded. Mental Status None recorded. Family History Nothing Reported. Medical History No medical history recorded. Past Encounters Encounter ID Performer Location Encounter Start Date Encounter Closed Date Diagnosis/Indication Diagnosis SNOMED-CT Code Diagnosis ICD10 Code [id number] MD [place] Barnett OFFICE [address] [place] [address] [place] [address] 10/10/2020 11:36:37 10/10/2020 12:29:58 Adult health examination 175095539 Z00.00 [id number] MD [place] Barnett OFFICE [address] [place] [address] [place] [address] 10/14/2020 15:46:49 10/14/2020 19:11:58 Adult health examination 107037518 Z00.00 Health Concerns Section Related Observation LastModified by Organization Detai ls LastModified Time None Recorded Concern Status LastModified by Organization Details LastModified Time None Recorded Advance Directives Directive None Recorded Payers Encounter Date Sequence Insurance Name Policy Number Policy Lin Covered Member ID Lin Member ID Guarantor Name 10/10/2020 SLIDING FEE SCHEDULE - DISCOUNT [facility] 10/14/2020 SLIDING FEE SCHEDULE - DISCOUNT Malorie Reppmann Notes Date Note Type Note Provider Name and Address Organization Details Recorded Time 10/10/2020 text/html has had colonoscopy in [place] Thuan Vallejo MD [address] [place] [address] [place], [address], [facility] [employer] 10/10/2020 12:05:52 10/14/2020 text/html no real c/o Thuan Vallejo MD [address] [place] [address] [place], [address], [facility] [employer] 10/14/2020 17:12:51
--- NOTE | 2024-03-08 14:30 | CRLHL7_ITS ---
For Patients: As a result of the Century Cures Act, medical imaging exams and procedure reports are released immediately into your electronic medical record. You may view this report before your referring provider. If you have questions, please contact your health care provider. INDICATION: Lumbar radiculopathy TECHNIQUE: Multiplanar, multisequence MRI of the lumbar spine without and with 15 mL Dotarem contrast. COMPARISON: Lumbar spine MRI dated 02/07/2024 FINDINGS: Postsurgical changes of interval left L4-5 hemilaminectomies with a microdiskectomy. In the surgical bed, there is a multiloculated peripherally enhancing T2 hyperintense collection with a component in the left posterior epidural space at the L4 level, the largest component of which measures approximately 1.7 x 0.7 cm (craniocaudal by anteroposterior) (10/30). The region of enhancement extending along the posterolateral epidural space measures approximately 5.0 cm in total craniocaudal extent (10/29), resulting in mild spinal canal stenosis at L3-4. At L4-5, this collection contributes to persistent severe left subarticular zone stenosis with compression of the traversing left L5 nerve root. Moderate central spinal canal stenosis at this level, partially secondary to evolving postsurgical changes along with the disc bulge, facet arthropathy with ligamentum flavum infolding, and epidural lipomatosis. Normal alignment and lumbar lordosis. No acute fracture or dislocation. Otherwise, unchanged multilevel degenerative changes, as previously characterized. IMPRESSION: Postsurgical changes of interval left L4-5 hemilaminectomies with a microdiskectomy. There is a fluid collection in the surgical bed with a component in the left posterior epidural space at the L4 level, which contributes to persistent severe left subarticular zone stenosis and moderate central spinal canal stenosis. The sterility of this collection is indeterminate by imaging, but may reflect a postoperative hematoma or complex seroma. These findings were discussed with Dr. Lockwood at 12:09 p.m. Dictated by Mino Nieto MD @ 03/09/2024 12:10:10 PM (Electronically Signed)
== END 2024-03-08 14:15 | disposition home or self-care (01) ==
LOC: MRI 14:16
PROVIDERS: PCP Internal Medicine; Visit Provider Neurological Surgery
DX: M54.16 Radiculopathy, lumbar region (principal); M48.061 Spinal stenosis, lumbar region without neurogenic claudication
CPT/HCPCS: 72158; A9575

== ENCOUNTER 2024-03-20 16:08 | Emergency (ER) | payer MEDICARE, OTHER, SELFPAY ==
--- OUTSIDE RECORDS SUMMARY | 2024-03-20 16:12 | XMS_ITS | Data Portability ---
Author Organization [facility]IK[facility]J [facility] Address [address] [place] [address] [place] [address] Assessment No assessment recorded. Plan of Treatment [...] By Organization Details Last Modified Time 10/14/2020 [id number] [facility] Not available 10/14/2020 17:12:36 Reason for Referral None Reported. Results Created Date Observation Date Name Description Value Unit Range Abnormal Flag Note LastModifiedBy Organization Detail LastModifiedTime 09/19/19 21 09/18/2020 lipid panel , serum total cholesterol 183 Not Available [facility] Office [address] [place] [address], [phone], 09/19/2020 12:18:14 09/19/19 21 09/18/2020 lipid panel , serum triglyceride s 105 Not Available [facility] Office [address] [place] [address], [phone], 09/19/2020 12:18:14 09/19/19 21 09/18/2020 lipid panel , serum HDL 49 Not Available [address], [address], 09/19/2020 12:18:14 09/19/19 21 09/18/2020 lipid panel , serum LDL 113 Not Available [address], [address], 09/19/2020 12:18:14 09/19/19 21 09/18/2020 lipid panel , serum creatinine 1.06 Not Available [facility] Office [address] [place] [address], [address], 09/19/2020 12:18:14 09/19/19 21 09/18/2020 BMP, blood total cholesterol 183 Not Available [facility] Office [address] [place] [address], [address], 09/19/2020 15:30:38 09/19/19 21 09/18/2020 BMP, blood triglyceride s 105 Not Available [facility] [address] [place] [address], [address], 09/19/2020 15:30:38 09/19/19 21 09/18/2020 BMP, blood HDL 49 Not Available [address], [address], 09/19/2020 15:30:38 09/19/19 21 09/18/2020 BMP, blood LDL 113 Not Available [address], [address], 09/19/2020 15:30:38 09/19/19 21 09/18/2020 BMP, blood creatinine 1.06 Not Available [address], [address], 09/19/2020 15:30:38 09/19/19 21 09/18/2020 HbA1c (hemo globi n A1c), blood hemoglobin A1C 5.5 Not Available [facility] Office [address] [place] [address], [address], 09/19/2020 19:08:17 Result Notes None recorded. Medical Equipment None Reported. Vitals Date Recorded Body weight Systolic blood pressure Diastolic blood pressure Provider Name and Address Organization Details Last Updated DateTime 10/14/2020 73725.63 g 132 mm[Hg] 89 mm[Hg] Thuan Vallejo MD [facility] [place], [address] 10/14/2020 17:08:54 Social History None recorded. Functional Status None recorded. Mental Status None recorded. Family History Nothing Reported. Medical History No medical history recorded. Past Encounters Encounter ID Performer Location Encounter Start Date Encounter Closed Date Diagnosis/Indication Diagnosis SNOMED-CT Code Diagnosis ICD10 Code [id number] MD [place] Barnett OFFICE [address] [place] [address] [place] [address] 10/10/2020 11:36:37 10/10/2020 12:29:58 Adult health examination 859588184 Z00.00 [id number] MD [place] Barnett OFFICE [address] [place] [address] [place] [address] 10/14/2020 15:46:49 10/14/2020 19:11:58 Adult health examination 111411685 Z00.00 Health Concerns Section Related Observation LastModified by Organization Detai ls LastModified Time None Recorded Concern Status LastModified by Organization Details LastModified Time None Recorded Advance Directives Directive None Recorded Payers Encounter Date Sequence Insurance Name Policy Number Policy Lin Covered Member ID Lin Member ID Guarantor Name 10/10/2020 SLIDING FEE SCHEDULE - DISCOUNT [facility] 10/14/2020 SLIDING FEE SCHEDULE - DISCOUNT Malorie Reppmann Notes Date Note Type Note Provider Name and Address Organization Details Recorded Time 10/10/2020 text/html has had colonoscopy in [place] Thuan Vallejo MD [address] [place] [address] [place], [phone], [facility] [employer] 10/10/2020 12:05:52 10/14/2020 text/html no real c/o Thuan Vallejo MD [address] [place] [address] [place], [address], [facility] [employer] 10/14/2020 17:12:51
[2024-03-20 16:25] VITALS: BP 134/78; PULSE 106; RESP 16; TEMP 36.8; O2SAT 97
--- NOTE | 2024-03-20 17:29 | ED.GENADULT ---
HPI - General Adult General Chief complaint: Fever Stated complaint: lumbar spine surgery, redness, diarrhea, fever Time Seen by Provider: 03/20/24 16:44 History of Present Illness HPI narrative: This 68-year-old male comes in with report of nausea, vomiting and, and diarrhea. He did have a low back surgery about 9 days ago and is recovering normally from that. He recently developed these symptoms typical of a gastroenteritis. He arrives here with normal vital signs except his heart rate is elevated at 106 beats per minute. He has not had any antibiotic treatment recently. Related Data Home Medications ?Medication ?Instructions ?Recorded ?Confirmed enoxaparin 40 mg/0.4 mL mg subcut 03/20/24 subcutaneous syringe gabapentin 300 mg capsule PO 03/20/24 oxycodone 5 mg tablet PO 03/20/24 Allergies Allergy/AdvReac Type Severity Reaction Status Date / Time No Known Allergies Allergy Unknown Unverified 12/14/23 10:38 Review of Systems Status of ROS: Reports: 10 or more systems reviewed and unremarkable except as noted in History and below Narrative: Constitutional: No fevers, no weight gain or loss. Eyes: No discharge. No vision changes. HENT: No congestion, no sore throat, no ear pain. Cardiovascular: No chest pain, no palpitations. Respiratory: No shortness of breath, no wheezes, no cough. Gastrointestinal: Nausea, vomiting, and diarrhea. Genitourinary: No dysuria, no hematuria. Musculoskeletal: Normal range of motion. Skin: No rashes, no pruritis. Neurological: No dizziness, weakness, sensory change, speech change. Endo/Heme/Allergies: No bruising or bleeding. No polydipsia. Pysch: no suicidality, no anxiety, no insomnia. All other systems reviewed and are negative. [facility] Medical History (Updated 03/20/24 @ 19:20 by Christopher Butcher MD) Cataracts, bilateral ?H26.9 - Unspecified cataract (ICD-10) Fatigue ?R53.83 - Other fatigue (ICD-10) Healthcare maintenance ?Z00.00 - Encounter for general adult medical examination without abnormal findings (ICD-10) Tubular adenoma ?D36.9 - Benign neoplasm, unspecified site (ICD-10) Excess ear wax ?H61.20 - Impacted cerumen, unspecified ear (ICD-10) Social History (Updated 12/14/23 @ 10:39 by Karen Carlos ~ [facility]) What is your current living situation?: I presently have a place to live Problems where you live: no known problems In the past 12 months, utilities in danger of being shut off: no In past 12 months, lack of transportation kept you from medical appts, meetings, work, or getting things needed for daily living: no In the past 12 mos, have been you worried that your food would run out before you had money to buy more?: never true In the past 12 mos, the food you bought just didn't last and you didn't have money to buy more?: never true Smoking Status: Never smoker Do you use any of these nicotine containing products: None Second hand tobacco smoke exposure: No How often do you have a drink containing alcohol: 2-3 times a week AUDIT-C Alcohol total score: 3 Non-prescribed substance use: denies use How often does anyone, including family, friends and others, physically hurt you: never How often does anyone, including family, friends and others, insult or talk down to you: never How often does anyone, including family, friends and others, threaten you with harm: never How often does anyone, including family, friends and others, scream or curse at you: never Exam Narrative: Exam Narrative: Constitutional: Well-developed, well-nourished, no acute distress. HEENT: Normocephalic, atraumatic. Neck: Normal range of motion. Nontender. Supple. Heart: Regular. No murmurs. Normal rate. Intact distal pulses. Lungs: Clear to auscultation. No chest discomfort. No wheezes, rhonchi, or rales. Abdomen: Normal bowel sounds. Nontender. No rebound tenderness. Genitalia: Deferred. Back: Normal range of motion. Surgical wound appears to be healing properly with no sign of infection or discharge. Alexis are in place. Extremities: Normal range of motion. No injury. Skin: Intact. No rash. Warm. No erythema or pallor. Neurologic: No altered sensation. No weakness. Alert and oriented. Psychiatric: No suicidality. No anxiety or depression. No insomnia. Nursing notes and vitals signs are reviewed. Const: Vital Signs, click to edit/add: Vital Signs - 24 hr 03/20/24 16:25 03/20/24 18:34 Temperature 98.3 F 99.2 F Pulse Rate [Pulse Oximeter] 106 H Pulse Rate [Right Pulse Oximeter] 93 Respiratory Rate 16 18 Blood Pressure [Le ft Arm] 113/56 L Blood Pressure [Ri ght Upper Arm] 134/78 Pulse Oximetry 97 95 Oxygen Delivery Me thod Room Air Room Air Course Vital Signs Vital signs: Initial Vital Signs Temperature 98.3 F 03/20/24 16:25 Temperature Source Oral 03/20/24 16:25 Pulse Rate 106 H 03/20/24 16:25 Respiratory Rate 16 03/20/24 16:25 Blood Pressure 134/78 03/20/24 16:25 Blood Pressure Mean 96 03/20/24 16:25 Blood Pressure Position Sitting 03/20/24 16:25 Pulse Oximetry 97 03/20/24 16:25 Oxygen Delivery Method Room Air 03/20/24 16:25 Vital Signs Temperature 98.3 F 03/20/24 16:25 Pulse Rate 106 H 03/20/24 16:25 Respiratory Rate 16 03/20/24 16:25 Blood Pressure 134/78 03/20/24 16:25 Pulse Oximetry 97 03/20/24 16:25 Oxygen Delivery Method Room Air 03/20/24 16:25 Temperature 99.2 F 03/20/24 18:34 Pulse Rate 93 03/20/24 18:34 Respiratory Rate 18 03/20/24 18:34 Blood Pressure 113/56 L 03/20/24 18:34 Pulse Oximetry 95 03/20/24 18:34 Oxygen Delivery Method Room Air 03/20/24 18:34 Medications Administered Medications: Discontinued Medications Generic Name Dose Route Start Last Admin Trade Name Freq PRN Reason Stop Dose Admin Sodium Chloride 500 mls @ 500 mls/hr 03/20/24 17:27 03/20/24 19:13 0.9 % Sodium Chloride 500 Ml IV 03/20/24 18:26 Infused .Q1H ONE Infusion Ketorolac Tromethamine 15 mg 03/20/24 18:02 03/20/24 18:29 Ketorolac 30 Mg/Ml Inj IVP 03/20/24 18:03 15 mg ONCE ONE Administration Ondansetron HCl 4 mg 03/20/24 17:27 03/20/24 17:50 Ondansetron 2 Mg/Ml Inj IVP 03/20/24 17:28 4 mg ONCE ONE Administration Medical Decision Making MDM Narrative Medical decision making narrative: This patient comes in with symptoms typical of viral gastroenteritis that has been occurring more frequently in these past weeks. He has nausea, vomiting, and diarrhea. He does arrive with slightly increased heart rate at 106 beats per minute but other vital signs are normal. An IV was established and the patient received 500 mL of normal saline along with Zofran 4 mg and Toradol 15 mg. He states that he is feeling much better. Lab results returned with reassuring findings. He did provide stool that was sent to culture and testing for Clostridium difficile. He is okay to be discharged home. I did provide [facility] prescriptions for Zofran and Toradol. Lab Data Labs: Lab Results 03/20/24 Range/Units 17:47 WBC 12.25 H (4.50-11.00) K/uL RBC 4.94 (4.30-5.90) m/uL Hgb 14.7 (13.5-17.5) gm/dL Hct 44.9 (37.0-53.0) % MCV 91 (80-100) fL MCH 30 (26-34) pg MCHC 33 (32-36) gm/dL RDW Coeff of Dallin 14.0 (11.5-15.5) % Plt Count 342 (140-440) K/uL Neut % (Auto) 94.2 H (42.0-72.0) % Lymph % (Auto) 1.1 L (20-44) % [place] % (Auto) 3.4 (0.0-11.0) % Eos % (Auto) 0.1 (0.0-7.0) % Baso % (Auto) 0.1 (0.0-3.0) % Neut # (Auto) 11.50 H (1.7-7.0) K/uL Lymph # (Auto) 0.10 L (0.90-2.90) K/uL [place] # (Auto) 0.40 (0.00-0.90) K/UL Eos # (Auto) 0.00 (0.00-0.50) K/uL Baso # (Auto) 0.00 (0.00-0.30) K/uL Abs Immat Gran (auto) 0.10 (0.00-0.30) K/uL Imm/Tot Granulo (auto) 1.1 % Sodium 135 (135-149) mmol/L Potassium 3.7 (3.6-5.1) mmol/L Chloride 105 (96-114) mmol/L Carbon Dioxide 23 (20-32) mmol/L Anion Gap 7 (7-15) mEq/L BUN 19 (7-30) mg/dL Creatinine 0.8 (0.5-1.5) mg/dL Estimated GFR 97 ml/min Glucose 130 H (60-115) mg/dL Calcium 8.7 (8.4-10.6) mg/dL Discharge Plan Discharge Clinical Impression: Gastroenteritis Patient Disposition: Home, Self-Care Condition: Improved Additional Instructions: Take frequent sips of fluids. Use medicines as needed and directed. Increase diet otherwise as tolerated. Follow up with MD return if worsening. Prescriptions: No Action gabapentin 300 mg capsule PO oxycodone 5 mg tablet PO enoxaparin 40 mg/0.4 mL syringe subcut Follow Up/Referrals: Charles Holt MD [Primary Care Provider] - Stand Alone Forms: Crypt[employer] Info Instructions
[2024-03-20] MEDS: ONDANSETRON 2 MG/ML inj 4 MG IVP (17:50)
[2024-03-20] MEDS: 0.9 % SODIUM CHLORIDE 500 ML 500 ML IV (17:53)
[2024-03-20 18:10] LABS: Basophils Percent Auto 0.1 % (0.0-3.0); Eosinophils Percent Auto 0.1 % (0.0-7.0); Hematocrit 44.9 % (37.0-53.0); Hemoglobin* 14.7 gm/dL (13.5-17.5); Immature Granulocytes Pct Auto 1.1 %; Lymphocytes Percent Auto 1.1 % (20-44); Mean Corpuscular HGB Conc 33 gm/dL (32-36); Mean Corpuscular Hemoglobin 30 pg (26-34); Mean Corpuscular Volume 91 fL (80-100); Monocytes Percent Auto 3.4 % (0.0-11.0); Neutrophils Percent Auto 94.2 % (42.0-72.0); Platelet Count* 342 K/uL (140-440); Red Blood Count 4.94 m/uL (4.30-5.90); White Blood Count* 12.25 K/uL (4.50-11.00)
[2024-03-20 18:14] LABS: Slide Review Reflex No
[2024-03-20] MEDS: KETOROLAC 30 MG/ML inj 15 MG IVP (18:29)
[2024-03-20 18:31] LABS: Chloride* 105 mmol/L (96-114); Potassium* 3.7 mmol/L (3.6-5.1); Sodium* 135 mmol/L (135-149)
[2024-03-20 18:34] VITALS: BP 113/56; PULSE 93; RESP 18; TEMP 37.3; O2SAT 95
[2024-03-20 18:34] LABS: Anion Gap 7 mEq/L (7-15); Blood Urea Nitrogen* 19 mg/dL (7-30); Carbon Dioxide* 23 mmol/L (20-32); Creatinine* 0.8 mg/dL (0.5-1.5); Estimated Glomerular Filt Rate 97 ml/min
[2024-03-20 18:35] LABS: Calcium* 8.7 mg/dL (8.4-10.6); Glucose* 130 mg/dL (60-115)
[2024-03-20 19:18] LABS: C.Difficile Negative (Negative); CDIFFEPI 027 PRESUMPTIVE NEGATIVE (Negative)
== END 2024-03-20 19:33 | disposition home or self-care (01) ==
PROVIDERS: Emergency Provider Emergency Medicine Emergency Medical Services; PCP Internal Medicine
DX: K52.9 Noninfective gastroenteritis and colitis, unspecified (principal)
CPT/HCPCS: 36415; 80048; 85025; 87045; 87046; 87427; 87493; 96361; 96374; 96375; 99284; J1885; J2405; J7030

== ENCOUNTER 2024-04-14 10:00 | Outpatient (RCR) | payer MEDICARE, OTHER, SELFPAY | END 2024-08-12 23:59 | disposition home or self-care (01) | PROVIDERS: PCP Internal Medicine; Visit Provider Internal Medicine | DX: M54.50 Low back pain, unspecified (principal); M79.605 Pain in left leg; Z51.89 Encounter for other specified aftercare | CPT/HCPCS: 97110; 97112; 97116; 97162 ==